=== PATIENT | male | born 1985 | race Caucasian/White ===

== ENCOUNTER 2017-06-06 11:48 | Emergency (ER) | payer MEDICAID ==
[~2017-06-06] VITALS: Ht 172.7 cm; Wt 75.0 kg
[~2017-06-06 11:48] MED LIST: ALBU6.7H INH; DICY10CA88 PO; DIPH1TAB PO; IBUP-1984 PO; IBUP-1986 PO; ONDA4TAB6 PO
[2017-06-06 11:53] VITALS: BP 121/86
[2017-06-06] MEDS ORDERED: NICO-687 TOP (12:59)
== END 2017-06-06 12:52 | disposition home or self-care (01) ==
LOC: ER 11:48
DX: Z02.89 Encounter for other administrative examinations (principal); F19.10 Other psychoactive substance abuse, uncomplicated; F12.10 Cannabis abuse, uncomplicated; F15.10 Other stimulant abuse, uncomplicated; F11.10 Opioid abuse, uncomplicated; G89.29 Other chronic pain; Z86.19 Personal history of other infectious and parasitic diseases; Z86.14 Personal history of Methicillin resistant Staphylococcus aureus infection; Z79.899 Other long term (current) drug therapy
CPT/HCPCS: 71045; 99283

== ENCOUNTER 2018-01-31 16:14 | Emergency (ER) | payer MEDICAID ==
[~2018-01-31] VITALS: Ht 172.7 cm; Wt 78.8 kg
[2018-01-31 16:16] VITALS: BP 122/90
== END 2018-01-31 17:19 | disposition home or self-care (01) ==
LOC: ER 16:14
DX: F11.20 Opioid dependence, uncomplicated (principal); F15.10 Other stimulant abuse, uncomplicated; G89.29 Other chronic pain; F12.90 Cannabis use, unspecified, uncomplicated
CPT/HCPCS: 99281

== ENCOUNTER 2018-05-20 22:09 | Emergency (ER) | payer MEDICAID ==
[~2018-05-20] VITALS: Ht 172.7 cm; Wt 68.5 kg
[2018-05-20] MEDS ORDERED: azithromycin 250mg tablet PO ONE (22:45)
[2018-05-20] MEDS ORDERED: CefTRIAXone 250MG IM Kit w/LIDOcaine IM ONE (22:45)
[2018-05-20 23:07] VITALS: BP 145/89
== END 2018-05-20 23:09 | disposition home or self-care (01) ==
LOC: ER 22:10
DX: A64 Unspecified sexually transmitted disease (principal); G89.29 Other chronic pain; M54.9 Dorsalgia, unspecified; F12.90 Cannabis use, unspecified, uncomplicated; F15.90 Other stimulant use, unspecified, uncomplicated; F11.90 Opioid use, unspecified, uncomplicated
CPT/HCPCS: 96372; 99283; J0696

== ENCOUNTER 2018-05-26 12:13 | Emergency (ER) | payer MEDICAID ==
[~2018-05-26] VITALS: Ht 172.7 cm; Wt 79.0 kg
[2018-05-26 12:26] VITALS: BP 124/96
[2018-05-26 13:02] LABS: CLARITY,URINE SLIGHTLY CLOUDY (Clear); COLOR,URINE YELLOW (Yellow); GLUCOSE, URINE NEGATIVE (Neg); KETONES,URINE NEGATIVE (Neg); LEUKOCYTE ESTERASE ,URINE SMALL (Neg); NITRITES, URINE NEGATIVE (Neg); OCCULT BLOOD,URINE NEGATIVE (Neg); PROTEIN,URINE 100 mg/dl (Neg)
--- NOTE | 2018-05-26 13:03 | NUR ---
DR. CLEMENTE AT BEDSIDE.
[2018-05-26 13:04] LABS: UA COLLECTION TYPE CLN CATCH MIDSTREAM
[2018-05-26 13:08] LABS: RBC,URINE NONE SEEN /HPF (0-2); WBC,URINE 50-100 /HPF (0-4)
[2018-05-26 13:09] LABS: BACTERIA,URINE 1+ /HPF (Neg); MUCUS STRANDS MODERATE /LPF (Neg); SPERM FEW /HPF (NEGATIVE); SQUAMOUS EPITHELIAL CELL,UR FEW /LPF (FEW)
[2018-05-26] MEDS ORDERED: CefTRIAXone 250MG IM Kit w/LIDOcaine IM ONE (13:15)
[2018-05-26] MEDS ORDERED: azithromycin 250mg tablet PO ONE (13:15)
[2018-05-26] MEDS ORDERED: DOXY100C43 PO (13:25)
--- NOTE | 2018-05-26 13:43 | NUR ---
PER DR. BRYN KEYS TO RUN CLAM/GC TEST USING CLEAN CATCH URINE THAT WAS SENT TO THE LAB.
== END 2018-05-26 13:46 | disposition home or self-care (01) ==
LOC: ER 12:14
DX: R22.1 Localized swelling, mass and lump, neck (principal); N34.2 Other urethritis; G89.29 Other chronic pain; M54.9 Dorsalgia, unspecified; F17.210 Nicotine dependence, cigarettes, uncomplicated; F12.90 Cannabis use, unspecified, uncomplicated; F15.90 Other stimulant use, unspecified, uncomplicated; F11.90 Opioid use, unspecified, uncomplicated
CPT/HCPCS: 36415; 81001; 87088; 87491; 87591; 96372; 99283; J0696

== ENCOUNTER 2018-11-16 03:52 | Emergency (ER) | payer MEDICAID ==
[~2018-11-16] VITALS: Ht 172.7 cm; Wt 76.0 kg
[~2018-11-16 03:52] MED LIST changes: -ALBU6.7H INH; +ALBU6.7H9 INH
--- NOTE | 2018-11-16 04:22 | NUR ---
Discussed pt's c/o nausea with INGA Luque; new orders for NS and Zofran received.
[2018-11-16] MEDS ORDERED: ondansetron/PF 4mg/2ml inj IV ONE ×2 (04:25→05:25)
[2018-11-16] MEDS ORDERED: normal saline 1000ml 1,000 ML IV ONE (04:25)
[2018-11-16 04:36] LABS: BASOPHILS % (AUTO) 0.3 % (0-1); EOSINOPHILS # (AUTO) 0.1 X10'3 (0-0.9); HEMATOCRIT 47.5 % (42.0-52.0); HEMOGLOBIN 15.9 g/dl (14.0-17.9); LYMPHOCYTES # (AUTO) 2.2 X10'3 (1.1-4.8); LYMPHOCYTES % (AUTO) 18.5 % (21-51); MEAN CORPUSCULAR HEMOGLOBIN 30.4 PG (27.0-31.0); MEAN CORPUSCULAR HGB CONC 33.5 g/dL (33.0-36.5); MEAN CORPUSCULAR VOLUME 90.8 FL (78-98); MEAN PLATELET VOLUME 8.6 FL (7.4-10.4); MONOCYTES # (AUTO) 0.8 X10'3 (0-0.9); MONOCYTES % (AUTO) 6.6 % (2-12); NEUTROPHILS # (AUTO) 8.6 X10'3 (1.8-7.7); NEUTROPHILS % (AUTO) 73.6 % (42-75); PLATELET COUNT 239 X10'3 (140-440); RED BLOOD COUNT 5.23 X10'6 (4.70-6.10); RED CELL DISTRIBUTION WIDTH 13.2 % (11.5-14.5); WHITE BLOOD COUNT 11.7 X10'3 (4.5-11.0)
[2018-11-16 04:42] LABS: ALANINE AMINOTRANSFERASE 68 U/L (12-78); ALBUMIN 3.7 G/DL (3.4-5.0); ALBUMIN/GLOBULIN RATIO 0.9 (1.1-1.5); ALKALINE PHOSPHATASE 102 IU/L (46-116); ANION GAP 6 (8-16); ASPARTATE AMINO TRANSFERASE 34 U/L (10-37); BILIRUBIN,TOTAL 0.4 MG/DL (0.1-1.0); BLOOD UREA NITROGEN 21 MG/DL (7-18); BUN/CREATININE RATIO 19.3 (5.4-32.0); CALCIUM 9.6 MG/DL (8.5-10.1); CHLORIDE 102 MMOL/L (99-107); CREATININE 1.09 MG/DL (0.60-1.10); GLUCOSE 128 MG/DL (70-104); LIPASE < 50 U/L (73-393); POTASSIUM 4.9 MMOL/L (3.5-5.1); SODIUM 140 MMOL/L (135-145); TOTAL CARBON DIOXIDE 31.7 MMOL/L (24-32); TOTAL PROTEIN 7.7 G/DL (6.4-8.2); eGFR 79 ML/MIN
[2018-11-16] MEDS ORDERED: morphine 4 MG/ML inj SYRINge IV ONE (05:25)
[2018-11-16] MEDS ORDERED: normal saline 1000ML IV soln IVB ONE (05:25)
[2018-11-16 05:29] LABS: CLARITY,URINE CLEAR (Clear); COLOR,URINE AMBER (Yellow); GLUCOSE, URINE NEGATIVE (Neg); KETONES,URINE TRACE mg/dl (Neg); LEUKOCYTE ESTERASE ,URINE NEGATIVE (Neg); NITRITES, URINE NEGATIVE (Neg); OCCULT BLOOD,URINE NEGATIVE (Neg); PROTEIN,URINE NEGATIVE (Neg)
[2018-11-16 05:30] LABS: UA COLLECTION TYPE VOIDED
[2018-11-16] MEDS ORDERED: metroNIDAZOLE-Flagyl 500mg/NS 100 ML IV ONE (08:20)
[2018-11-16] MEDS ORDERED: levoFLOXACIN-Levaquin 750MG/D5 150 ML IV ONE (08:20)
[2018-11-16] MEDS ORDERED: PROC-8 PO (08:26)
[2018-11-16] MEDS ORDERED: CIPR-230 PO (08:26)
[2018-11-16] MEDS ORDERED: METR-159 PO (08:26)
[2018-11-16 11:03] VITALS: BP 120/79
== END 2018-11-16 11:10 | disposition home or self-care (01) ==
LOC: ER 03:53
DX: K52.9 Noninfective gastroenteritis and colitis, unspecified (principal); G89.29 Other chronic pain; F31.9 Bipolar disorder, unspecified; F12.90 Cannabis use, unspecified, uncomplicated; F15.90 Other stimulant use, unspecified, uncomplicated; F11.90 Opioid use, unspecified, uncomplicated; Z86.14 Personal history of Methicillin resistant Staphylococcus aureus infection; Z86.19 Personal history of other infectious and parasitic diseases; Z79.899 Other long term (current) drug therapy
CPT/HCPCS: 36415; 74176; 80053; 81003; 83605; 83690; 84145; 85025; 87040; 96361; 96365; 96367; 96375; 96376; 99284; J1956; J2270; J2405; J3490; J7030

== ENCOUNTER 2019-02-18 12:37 | Emergency (ER) | payer MEDICAID ==
[~2019-02-18] VITALS: Ht 172.7 cm; Wt 75.0 kg
[~2019-02-18 12:37] MED LIST changes: +PROC-8 PO
[2019-02-18 12:40] VITALS: BP 154/101
[2019-02-18] MEDS ORDERED: HYDROcodone/acetaminophen 10/325mg tab PO ONE (13:00)
[2019-02-18] MEDS ORDERED: ibuprofen tablet 400 MG TABLET PO ONE (13:00)
[2019-02-18] MEDS ORDERED: bacitracin 15gm ointment TP ONE (13:00)
[2019-02-18] MEDS ORDERED: ACET-3068 PO (13:03)
== END 2019-02-18 14:28 | disposition home or self-care (01) ==
LOC: ER 12:39
DX: T22.211A Burn of second degree of right forearm, initial encounter (principal); T20.10XA Burn of first degree of head, face, and neck, unspecified site, initial encounter; T31.0 Burns involving less than 10% of body surface; G89.29 Other chronic pain; F31.9 Bipolar disorder, unspecified; F17.200 Nicotine dependence, unspecified, uncomplicated; F10.99 Alcohol use, unspecified with unspecified alcohol-induced disorder; F12.90 Cannabis use, unspecified, uncomplicated; F15.90 Other stimulant use, unspecified, uncomplicated; Z79.899 Other long term (current) drug therapy; Z86.14 Personal history of Methicillin resistant Staphylococcus aureus infection; X08.8XXA Exposure to other specified smoke, fire and flames, initial encounter; Y93.89 Activity, other specified; Y92.89 Other specified places as the place of occurrence of the external cause; Y99.8 Other external cause status; Y90.9 Presence of alcohol in blood, level not specified
CPT/HCPCS: 16020; 99284

== ENCOUNTER 2019-03-08 12:10 | Emergency (ER) | payer MEDICAID ==
[~2019-03-08] VITALS: Ht 172.7 cm; Wt 76.5 kg
[~2019-03-08 12:10] MED LIST changes: +ACET-3068 PO
[2019-03-08 12:11] VITALS: BP 102/74
--- NOTE | 2019-03-08 12:39 | NUR ---
PLACED IN BED WC3, LIGHTS DOWN, ICE CHIPS, AND BLANKETS. MOM AT BEDSIDE.
[2019-03-08] MEDS ORDERED: proCHLORperazine 10 MG/2 ml inj IM ONE (13:00)
[2019-03-08] MEDS ORDERED: ketorolac tromethamine 15mg/ml inj. IM ONE (13:00)
[2019-03-08] MEDS ORDERED: diphenhydrAMINE 50 mg/ml inj IM ONE (13:00)
--- NOTE | 2019-03-08 13:41 | NUR ---
DISCUSSED PLAN OF CARE WITH ANUSHKA SAENZ, STATES HE WANTS TO WAIT FOR ED READ BEFORE THE PATIENT IS MEDICATIONS, GAVE PT ICE PACK FOR BACK OF HEAD AND NECK
--- NOTE | 2019-03-08 15:00 | NUR ---
PT HAD ORIGINALLY REQUESTED HIS MEDS BE GIVEN IV THERE WERE 3 OF THEM AND HE FELT DEHYDRATED. APPROVED. SL STARTED AND MEDS GIVEN, THEN PT STATED HE WANTED TO LEAVE, SEE D/C NOTE.
== END 2019-03-08 15:03 | disposition home or self-care (01) ==
LOC: ER 12:11
DX: G43.909 Migraine, unspecified, not intractable, without status migrainosus (principal); R11.2 Nausea with vomiting, unspecified; G89.29 Other chronic pain; F12.90 Cannabis use, unspecified, uncomplicated; F15.90 Other stimulant use, unspecified, uncomplicated; F11.90 Opioid use, unspecified, uncomplicated
CPT/HCPCS: 70450; 72125; 96374; 96375; 99284; J0780; J1200; J1885

== ENCOUNTER 2019-04-25 01:41 | Emergency (ER) | payer MEDICAID ==
[~2019-04-25] VITALS: Ht 172.7 cm; Wt 78.2 kg
[~2019-04-25 01:41] MED LIST changes: -ACET-3068 PO
[2019-04-25 01:46] VITALS: BP 128/94
[2019-04-25] MEDS ORDERED: CefTRIAXone 1000mg IM Kit (w/lidocaine diluent) IM ONE (02:55)
[2019-04-25] MEDS ORDERED: azithromycin 250mg tablet PO ONE (02:55)
[2019-04-25] MEDS ORDERED: CefTRIAXone 250MG IM Kit w/LIDOcaine IM ONE (03:00)
== END 2019-04-25 03:14 | disposition home or self-care (01) ==
LOC: ER 01:43
DX: A64 Unspecified sexually transmitted disease (principal); G89.29 Other chronic pain; F17.200 Nicotine dependence, unspecified, uncomplicated; F12.90 Cannabis use, unspecified, uncomplicated; Z86.14 Personal history of Methicillin resistant Staphylococcus aureus infection
CPT/HCPCS: 36415; 87491; 87591; 96372; 99283; J0696

== ENCOUNTER 2019-05-01 09:53 | Emergency (ER) | payer MEDICAID | END 2019-05-01 10:23 | disposition left against medical advice (07) | LOC: ER 09:56 | DX: Z00.00 Encounter for general adult medical examination without abnormal findings (principal); Z53.21 Procedure and treatment not carried out due to patient leaving prior to being seen by health care provider ==

== ENCOUNTER 2019-09-27 18:11 | Emergency (ER) | payer MEDICAID ==
[~2019-09-27] VITALS: Ht 172.7 cm; Wt 84.1 kg
[2019-09-27] MEDS ORDERED: azithromycin 250mg tablet PO ONE (20:35)
[2019-09-27] MEDS ORDERED: CefTRIAXone 250MG IM Kit w/LIDOcaine IM ONE (20:35)
[2019-09-27 21:26] VITALS: BP 145/90
[2019-10-01 06:15] LABS: RPR Reactive (Non Reactive)
--- NOTE | 2019-10-01 10:48 | NUR ---
Patient called back regarding positive syphilis results and need to come back to ED for PCN injection per Dr. Hernández. Patient agreed and will be coming to get abx sometime today.
== END 2019-09-27 21:17 | disposition home or self-care (01) ==
LOC: ER 18:12
DX: R36.9 Urethral discharge, unspecified (principal); G89.29 Other chronic pain; F31.9 Bipolar disorder, unspecified; F12.90 Cannabis use, unspecified, uncomplicated; Z86.19 Personal history of other infectious and parasitic diseases; Z86.14 Personal history of Methicillin resistant Staphylococcus aureus infection; Z79.899 Other long term (current) drug therapy
CPT/HCPCS: 36415; 86592; 87491; 87591; 96372; 99283; J0696

== ENCOUNTER 2019-10-01 21:56 | Emergency (ER) | payer MEDICAID ==
[~2019-10-01] VITALS: Ht 172.7 cm; Wt 85.0 kg
[2019-10-01] MEDS ORDERED: penicillin G benzathine 1.2 million unit/2ml syringe IM ONE (22:25)
[2019-10-01 23:04] VITALS: BP 125/85
== END 2019-10-01 23:05 | disposition home or self-care (01) ==
LOC: ER 21:57
DX: A53.9 Syphilis, unspecified (principal); R11.2 Nausea with vomiting, unspecified; G89.29 Other chronic pain; F31.9 Bipolar disorder, unspecified; F12.90 Cannabis use, unspecified, uncomplicated; Z86.14 Personal history of Methicillin resistant Staphylococcus aureus infection; Z79.899 Other long term (current) drug therapy
CPT/HCPCS: 96372; 99283; J0561

== ENCOUNTER 2019-12-08 12:56 | Emergency (ER) | payer MEDICAID ==
[~2019-12-08] VITALS: Ht 172.7 cm; Wt 88.2 kg
[2019-12-08 13:02] VITALS: BP 113/75
[2019-12-08] MEDS ORDERED: LIDOcaine 1% W/epiNEPHrine 1:200,000 10ml vial IJ ONE (14:45)
[2019-12-08] MEDS ORDERED: CEPH250T PO (14:54)
[2019-12-08] MEDS ORDERED: SULF1TAB49 PO (14:54)
== END 2019-12-08 15:02 | disposition home or self-care (01) ==
LOC: ER 12:57
DX: L03.116 Cellulitis of left lower limb (principal); F12.90 Cannabis use, unspecified, uncomplicated; F15.90 Other stimulant use, unspecified, uncomplicated; Z86.19 Personal history of other infectious and parasitic diseases; Z86.14 Personal history of Methicillin resistant Staphylococcus aureus infection; Z79.899 Other long term (current) drug therapy
CPT/HCPCS: 10060; 99284

== ENCOUNTER 2020-05-24 07:37 | Emergency (ER) | payer MEDICAID ==
[~2020-05-24] VITALS: Ht 172.7 cm; Wt 84.3 kg
[2020-05-24] MEDS ORDERED: ketorolac trometh. 30mg/ml inj. IV ONE (08:05)
[2020-05-24] MEDS ORDERED: morphine 4 MG/ML inj SYRINge IV PRN (08:05)
[2020-05-24] MEDS ORDERED: ondansetron/PF 4mg/2ml inj IV ONE (08:05)
[2020-05-24] MEDS ORDERED: normal saline 1000ML IV soln IVB ONE (08:05)
[2020-05-24 08:49] LABS: BASOPHILS # (AUTO) 0.1 X10'3 (0-0.2); BASOPHILS % (AUTO) 0.7 % (0-1); EOSINOPHILS # (AUTO) 0.3 X10'3 (0-0.9); EOSINOPHILS % (AUTO) 4.8 % (0-6); HEMATOCRIT 46.5 % (42.0-52.0); HEMOGLOBIN 15.6 g/dl (14.0-17.9); LYMPHOCYTES # (AUTO) 2.5 X10'3 (1.1-4.8); LYMPHOCYTES % (AUTO) 35.4 % (21-51); MEAN CORPUSCULAR HEMOGLOBIN 30.3 PG (27.0-31.0); MEAN CORPUSCULAR HGB CONC 33.6 g/dL (33.0-36.5); MEAN CORPUSCULAR VOLUME 90.2 FL (78-98); MEAN PLATELET VOLUME 8.9 FL (7.4-10.4); MONOCYTES # (AUTO) 0.8 X10'3 (0-0.9); MONOCYTES % (AUTO) 10.7 % (2-12); NEUTROPHILS # (AUTO) 3.4 X10'3 (1.8-7.7); NEUTROPHILS % (AUTO) 48.4 % (42-75); PLATELET COUNT 222 X10'3 (140-440); RED BLOOD COUNT 5.16 X10'6 (4.70-6.10); RED CELL DISTRIBUTION WIDTH 13.6 % (11.5-14.5); WHITE BLOOD COUNT 7.1 X10'3 (4.5-11.0)
[2020-05-24 08:58] LABS: ALANINE AMINOTRANSFERASE 79 U/L (12-78); ALBUMIN/GLOBULIN RATIO 1.1 (1.1-1.5); ALKALINE PHOSPHATASE 104 IU/L (46-116); AMYLASE 38 U/L (25-115); ANION GAP 9 (8-16); ASPARTATE AMINO TRANSFERASE 39 U/L (10-37); BILIRUBIN,TOTAL 0.3 MG/DL (0.1-1.0); BLOOD UREA NITROGEN 26 MG/DL (7-18); BUN/CREATININE RATIO 22.2 (5.4-32.0); CHLORIDE 102 MMOL/L (99-107); CREATININE 1.17 MG/DL (0.60-1.10); GLUCOSE 112 MG/DL (70-104); LIPASE < 50 U/L (73-393); POTASSIUM 3.9 MMOL/L (3.5-5.1); SODIUM 141 MMOL/L (135-145); TOTAL CARBON DIOXIDE 29.7 MMOL/L (24-32); TOTAL PROTEIN 7.8 G/DL (6.4-8.2); eGFR 72 ML/MIN
--- NOTE | 2020-05-24 09:46 | NUR ---
pt states he is feeling better now. waiting on fluids to finish and urine sample
[2020-05-24 10:20] VITALS: BP 107/80
[2020-05-24 10:37] LABS: CLARITY,URINE SLIGHTLY CLOUDY (Clear); COLOR,URINE YELLOW (Yellow); GLUCOSE, URINE NEGATIVE (Neg); KETONES,URINE NEGATIVE (Neg); LEUKOCYTE ESTERASE ,URINE NEGATIVE (Neg); NITRITES, URINE NEGATIVE (Neg); OCCULT BLOOD,URINE NEGATIVE (Neg); PH,URINE 5.5 (4.8-8.0); PROTEIN,URINE NEGATIVE (Neg); UROBILINOGEN,URINE 0.2 E.U/dL (0.2-1.0)
[2020-05-24 10:38] LABS: UA COLLECTION TYPE CLN CATCH MIDSTREAM
[2020-05-24 10:52] LABS: MUCUS STRANDS MODERATE /LPF (Neg); SQUAMOUS EPITHELIAL CELL,UR FEW /LPF (FEW)
[2020-05-24 10:54] LABS: BACTERIA,URINE FEW /HPF (Neg); RBC,URINE NONE SEEN /HPF (0-2)
[2020-05-24] MEDS ORDERED: HYDR-3972 PO (10:59)
[2020-05-24] MEDS ORDERED: SUCR1TAB34 PO (10:59)
== END 2020-05-24 11:04 | disposition home or self-care (01) ==
LOC: ER 07:38
DX: R10.11 Right upper quadrant pain (principal); F12.90 Cannabis use, unspecified, uncomplicated; F15.90 Other stimulant use, unspecified, uncomplicated; G89.29 Other chronic pain; Z86.14 Personal history of Methicillin resistant Staphylococcus aureus infection; Z86.19 Personal history of other infectious and parasitic diseases; Z87.19 Personal history of other diseases of the digestive system; Z79.899 Other long term (current) drug therapy
CPT/HCPCS: 36415; 76700; 80053; 81001; 82150; 83690; 85025; 87088; 96361; 96374; 96375; 99284; J1885; J2270; J2405; J7030

== ENCOUNTER 2021-01-13 17:10 | Emergency (ER) | payer MEDICAID, OTHER ==
[~2021-01-13] VITALS: Ht 172.7 cm; Wt 86.0 kg
[~2021-01-13 17:10] MED LIST changes: +SUCR1TAB34 PO
[2021-01-13] MEDS ORDERED: iohexol 300mg/ml 100ml inj. ONE (17:33)
[2021-01-13 17:50] LABS: BASOPHILS % (AUTO) 0.5 % (0-1); EOSINOPHILS # (AUTO) 0.2 X10'3 (0-0.9); EOSINOPHILS % (AUTO) 1.7 % (0-6); HEMATOCRIT 49.5 % (42.0-52.0); LYMPHOCYTES # (AUTO) 2.3 X10'3 (1.1-4.8); LYMPHOCYTES % (AUTO) 22.6 % (21-51); MEAN CORPUSCULAR HEMOGLOBIN 30.8 PG (27.0-31.0); MEAN CORPUSCULAR HGB CONC 34.3 g/dL (33.0-36.5); MEAN CORPUSCULAR VOLUME 89.6 FL (78-98); MEAN PLATELET VOLUME 9.6 FL (7.4-10.4); MONOCYTES # (AUTO) 0.9 X10'3 (0-0.9); MONOCYTES % (AUTO) 9.1 % (2-12); NEUTROPHILS # (AUTO) 6.7 X10'3 (1.8-7.7); NEUTROPHILS % (AUTO) 66.1 % (42-75); PLATELET COUNT 257 X10'3 (140-440); RED BLOOD COUNT 5.52 X10'6 (4.70-6.10); RED CELL DISTRIBUTION WIDTH 13.2 % (11.5-14.5); WHITE BLOOD COUNT 10.1 X10'3 (4.5-11.0)
[2021-01-13 18:00] LABS: ALANINE AMINOTRANSFERASE 29 U/L (12-78); ALBUMIN 4.1 G/DL (3.4-5.0); ALBUMIN/GLOBULIN RATIO 1.1 (1.1-1.5); ALKALINE PHOSPHATASE 97 IU/L (46-116); ANION GAP 7 (8-16); ASPARTATE AMINO TRANSFERASE 20 U/L (10-37); BILIRUBIN,TOTAL 0.5 MG/DL (0.1-1.0); BLOOD UREA NITROGEN 14 MG/DL (7-18); BUN/CREATININE RATIO 14.1 (5.4-32.0); CALCIUM 9.3 MG/DL (8.5-10.1); CHLORIDE 104 MMOL/L (99-107); CREATININE 0.99 MG/DL (0.60-1.10); GLUCOSE 118 MG/DL (70-104); LIPASE 82 U/L (73-393); SODIUM 139 MMOL/L (135-145); TOTAL CARBON DIOXIDE 28.2 MMOL/L (24-32); TOTAL PROTEIN 7.7 G/DL (6.4-8.2); eGFR 87 ML/MIN
[2021-01-13 18:02] LABS: POTASSIUM 4.6 MMOL/L (3.5-5.1)
[2021-01-13 18:30] VITALS: BP 115/84
[2021-01-13] MEDS ORDERED: ketorolac tromethamine 15mg/ml inj. IV ONE (18:30)
[2021-01-13] MEDS ORDERED: ondansetron/PF 4mg/2ml inj IV ONE (18:30)
== END 2021-01-13 20:16 | disposition left against medical advice (07) ==
LOC: ER 17:11
DX: K56.609 Unspecified intestinal obstruction, unspecified as to partial versus complete obstruction (principal); G89.29 Other chronic pain; F12.90 Cannabis use, unspecified, uncomplicated; F15.90 Other stimulant use, unspecified, uncomplicated; Z86.14 Personal history of Methicillin resistant Staphylococcus aureus infection; Z86.19 Personal history of other infectious and parasitic diseases; Z79.899 Other long term (current) drug therapy
CPT/HCPCS: 36415; 74176; 80053; 83690; 85025; 96374; 96375; 99285; J1885; J2405; Q9967; 99284

== ENCOUNTER 2021-04-13 15:53 | Emergency (ER) | payer MEDICAID, OTHER ==
[~2021-04-13] VITALS: Ht 172.7 cm; Wt 84.1 kg
[2021-04-13] MEDS ORDERED: morphine 4 MG/ML inj SYRINge IM ONE (16:30)
[2021-04-13] MEDS ORDERED: iohexol 300mg/ml 100ml inj. ONE (17:04)
[2021-04-13] MEDS ORDERED: morphine 4 MG/ML inj SYRINge IV ONE (17:30)
[2021-04-13 18:40] VITALS: BP 119/84
[2021-04-13] MEDS ORDERED: TRAM50TA2 PO (19:27)
== END 2021-04-13 19:43 | disposition home or self-care (01) ==
LOC: ER 15:54
DX: M25.551 Pain in right hip (principal); M79.645 Pain in left finger(s); M79.644 Pain in right finger(s); M25.522 Pain in left elbow; R07.81 Pleurodynia; M25.561 Pain in right knee; R10.11 Right upper quadrant pain; G89.29 Other chronic pain; F31.9 Bipolar disorder, unspecified; F12.90 Cannabis use, unspecified, uncomplicated; F15.90 Other stimulant use, unspecified, uncomplicated; Z86.19 Personal history of other infectious and parasitic diseases; Z86.14 Personal history of Methicillin resistant Staphylococcus aureus infection; Z79.899 Other long term (current) drug therapy; V87.7XXA Person injured in collision between other specified motor vehicles (traffic), initial encounter; Y93.89 Activity, other specified; Y92.89 Other specified places as the place of occurrence of the external cause; Y99.8 Other external cause status
CPT/HCPCS: 71260; 73080; 73564; 74177; 96372; 96374; 99285; J2270; Q9967